=== PATIENT | female | born 2000 | race African-American/Black ===

== ENCOUNTER 2023-07-04 05:26 | Inpatient (IN) ==
[2023-07-04] MEDS ORDERED: OXYTOCIN 30 UNITS/NSS 30 UNITS/500 ML BAG IV PRN ×3 (05:36→09:20)
[2023-07-04] MEDS ORDERED: LIDOCAINE 1% LOCAL 20 ML VIAL INFIL PRN (05:36)
--- NOTE | 2023-07-04 05:42 | History & Physical Report ---
Date of Service July 04, 2023 Assessment & Plan (1) Encounter for supervision of normal in multigravida: Plan: IUP at 40 weeks presents in active labor requesting epidural analgesia anticipate vaginal delivery Admission and Anticipated Discharge Date Admission Date: July 04, 2023 History of Present Illness Primary Care Provider: Monet Lovett Hawa Patient is a 23 o female EDC07/[birth year]/23 who presents with regular ctns. No SPROM or bloody show. GBS-negative Allergies Allergy/AdvReac Type Severity Reaction Status Date / Time No Known Allergies Allergy Verified 07/04/23 05:36 Home Medications Medication Instructions Recorded Confirmed Type venlafaxine 50 mg tablet 50 mg PO DAILY 07/19/22 07/04/23 History vits no.124-ferrous fum 1 tab PO DAILY 07/04/23 07/04/23 History 27 mg iron-folic acid 800 mcg tablet ( Vitamin) Patient History Medical History Missed PTSD (post-traumatic stress disorder) from first delivery complications Depression with anxiety Asthma Chorioamnionitis Varicella vaccination Partial tear of left Achilles tendon Surgically repaired Surgical History S/P dilatation and curettage x2 S/P Achilles tendon repair H/O uvulectomy Hx of tonsillectomy Hx of LASIK Both eyes, release muscles when younger. Family History Grandfather (Maternal) Breast cancer Aunt Colorectal cancer Maternal Denies family history of Ovarian cancer Prostate cancer Myocardial infarction Social History Smoking Status: Never smoker Second Hand Exposure: No; Do You Dip or Chew Tobacco: No; Hx Alcohol Use: No (not during ) Hx Substance Use: No Preferred Language: Upper Sorbian Communication Ability: Effective Visual Impairment: No Limitations Scallop Cutter Required: No Beliefs That Will Affect Care: None marital status: Single marital status details: elisabet Singer (24) [phone] Current Living Situation: Family and Significant Other Current Living Situation Comment: lives with fob, daughter, cats-fob changing litter current occupational status: employed current occupation: [employer] specialist Feels Safe at Home: Yes Assistive Devices: None Review of Systems All systems reviewed & are unremarkable except as noted in HPI & below Physical Exam Constitutional: WD/WN, vitals as above Psychiatric: A+Ox3, euthymic affect Genitourinary: OB Exam Abdomen: + vertex and + regular contractions Manual OB Exam: + cervical dilation 5 cm, + cervical effacement 90% and + station -2 OB Exam Monitor Tracing: + external FHT monitor used, + external uterine monitor used and + normal FHT variability Code Status & VTE Plan VTE Prophylaxis Plan VTE Prophylaxis will be ordered: No Coding Level of Care Code None Diagnoses Encounter for supervision of normal in multigravida Z34.80
[2023-07-04] MEDS ORDERED: ePHEDrine sulfate 50 MG/ML AMP ONE (05:59)
[2023-07-04] MEDS: LACTATED RINGER'S 1,000 ML IV PRN (06:00)
--- NOTE | 2023-07-04 06:25 | Anesthesiology Consultation ---
Date of Service July 04, 2023 Assessment & Plan Chart Review Chart Review: Acceptable Risk for Labor Epidural Consults Requested none ASA ASA2 Proposed Anesthesia Anesthesia Type: Labor Epidural Risk / Benefits Reviewed With: PT / POA / Parent / Guardian, Accepts Plan and Informed Consent Obtained History Height/Weight Height: 5 ft 7 in Weight: 118.841 kg Allergies Allergy/AdvReac Type Severity Reaction Status Date / Time No Known Allergies Allergy Verified 07/04/23 05:36 Medications Home Medications Medication Instructions Recorded Confirmed Last Taken venlafaxine 50 mg tablet 50 mg PO DAILY 07/19/22 07/04/23 07/03/23 21:00 vits no.124-ferrous fum 1 tab PO DAILY 07/04/23 07/04/23 07/03/23 27 mg iron-folic acid 800 mcg tablet ( Vitamin) Past Medical History Medical History Missed PTSD (post-traumatic stress disorder) from first delivery complications Depression with anxiety Asthma Chorioamnionitis Varicella vaccination Partial tear of left Achilles tendon Surgically repaired Exercise / Class Metabolic Activity II 4-5 Yardwork/Stairs/Walk up hill Past Family History Family History Grandfather (Maternal) Breast cancer Aunt Colorectal cancer Maternal Denies family history of Ovarian cancer Prostate cancer Myocardial infarction Past Surgical History Surgical History S/P dilatation and curettage x2 S/P Achilles tendon repair H/O uvulectomy Hx of tonsillectomy Hx of LASIK Both eyes, release muscles when younger. Past Anesthesia History No Hx of Anesthesia Complications and No Family Hx of Anesthesia Complications History of PONV No Hx of PONV and No Hx of Motion Sickness Social History Smoking Status: Never smoker Do You Dip or Chew Tobacco: No Hx Alcohol Use: No (not during ) alcohol intake frequency: holidays/special occasions only Hx Substance Use: No substance use type: does not use Physical Exam Vital Signs Last Vital Signs Temp 98.2 F 07/04/23 05:37 Pulse 88 07/04/23 06:22 Resp 20 07/04/23 05:37 BP 133/67 07/04/23 06:18 Pulse Ox 91 07/04/23 06:22 ENMT Mouth: no dentition abnormality Thyromental Distance: > or= 3.5 Finger Breadths Mallampati Class: II Neck normal visual inspection Respiratory normal respiratory effort Auscultation: lungs clear to auscultation bilaterally Cardiovascular Rate/Rhythm: regular rate and regular rhythm
[2023-07-04 06:28] LABS: Hematocrit (blood only) 31.2 % (37.0-47.0); Hemoglobin 9.9 g/dl (12.0-16.0); Mean Corpuscular Hemoglobin 23.3 pg (25.0-34.0); Mean Corpuscular Hgb Conc 31.7 g/dL (32.0-36.0); Mean Corpuscular Volume 73.6 fL (80.0-100.0); Platelet Count 126 K/uL (130-400); RDW Coefficient of Variation 16.2 % (11.5-14.5); Red Blood Count 4.24 M/uL (4.20-5.40); White Blood Count 11.34 K/ul (4.8-10.8)
[2023-07-04] MEDS ORDERED: diphenhydrAMINE 50 MG/ML VIAL IV PRN (06:41)
[2023-07-04] MEDS ORDERED: fentaNYL citrate PF 100 MCG/2 ML VIAL EPI PRN (06:41)
[2023-07-04] MEDS ORDERED: ePHEDrine sulfate 50 MG/ML AMP IV PRN (06:41)
[2023-07-04] MEDS ORDERED: NALBUPHINE HCL 5 MG in SYRINGE 0 ML IV PRN (06:41)
[2023-07-04] MEDS ORDERED: LIDOCAINE 2% MPF LOCAL 5 ML VIAL EPI PRN (06:41)
[2023-07-04] MEDS ORDERED: SODIUM CHLORIDE 0.9% PF INJ 10 ML VIAL EPI PRN (06:41)
[2023-07-04] MEDS ORDERED: NALOXONE HCL 0.4 MG/1 ML VIAL/CARP IV PRN (06:41)
[2023-07-04] MEDS ORDERED: fentANYL 2 MCG/ML BUPIVacaine 0.125%-NSS 100ML BAG EPI PRN (06:41)
[2023-07-04] MEDS ORDERED: ONDANSETRON INJ 2 MG/ML 2 ML VIAL IV PRN (06:41)
[2023-07-04] MEDS ORDERED: LIDOCAINE 2%/EPINEPHRINE 1:200,000 20 ML PF EPI STA (06:41)
[2023-07-04] MEDS ORDERED: NALOXONE HCL 1 MG in SODIUM CHLORIDE 0.9% 1,000 ML IV PRN (06:41)
[2023-07-04] MEDS ORDERED: BUPIVACAINE 0.25% PF 30 ML VIAL EPI STA (06:41)
[2023-07-04] MEDS ORDERED: BUPIVACAINE 0.25% PF 30 ML VIAL EPI PRN (06:41)
[2023-07-04] MEDS ORDERED: ROPIVACAINE 0.5% PF 5 MG/ML 20 ML VIAL EPI PRN (06:41)
[2023-07-04] MEDS ORDERED: fentaNYL citrate PF 100 MCG/2 ML VIAL EPI STA (06:41)
[2023-07-04] MEDS ORDERED: SODIUM CHLORIDE 0.9% PF INJ 10 ML VIAL EPI STA (06:41)
[2023-07-04] MEDS: fentANYL 2 MCG/ML BUPIVacaine 0.125%-NSS 100ML BAG ONE (06:42)
[2023-07-04] MEDS: LIDOCAINE 2%/EPINEPHRINE 1:200,000 20 ML PF ONE (06:42)
[2023-07-04] MEDS: BUPIVACAINE 0.25% PF 30 ML VIAL ONE (06:42)
[2023-07-04] MEDS: fentaNYL citrate PF 100 MCG/2 ML VIAL ONE (07:00)
[2023-07-04] MEDS: SODIUM CHLORIDE 0.9% PF INJ 10 ML VIAL ONE (07:00)
[2023-07-04] MEDS: CALCIUM CARBONATE 500 MG CHEWABLE TAB PO ONE (07:06)
[2023-07-04] MEDS ORDERED: VENLAFAXINE HCL 50 MG TAB PO SCH (09:00)
--- NOTE | 2023-07-04 09:18 | Delivery Summary ---
Vaginal Delivery Summary Date of Service July 04, 2023 Vaginal Delivery Summary Spontaneous vaginal delivery the patient had been scheduled for induction today but actually arrived in labor for Dr. Vincent earlier she had requested epidural and soon afterwards was fully dilated pushed over several contractions a baby in occiput anterior position was a loose nuchal cord that was passed over the head gentle traction on the baby no excessive force easy delivery live vigorous female Cord clamped and cut cord blood obtained placenta removed with traction IV Pitocin started there is a small abrasion on the vulva that was repaired with a [id number] simply because of bleeding otherwise no tearing quantitative blood loss was approximately 50 mL sponge and instrument counts correct [facility] Vaginal Delivery Charge Delivery Type Details:
[2023-07-04] MEDS ORDERED: bisacodyL 10 MG SUPP PR PRN (09:20)
[2023-07-04] MEDS ORDERED: HYDROCORTISONE ACETATE 25 MG SUPP PR PRN (09:20)
[2023-07-04] MEDS ORDERED: DIPHTHER/TETAN/PERTUS Vaccine (Tdap, Adol/Adult) 0.5mL IM ONE (09:20)
--- NOTE | 2023-07-04 10:05 | Anesthesia Procedure Note ---
Date of Service July 04, 2023 Anesthesia Post Epidural Note Vital Signs Vital Signs: Temp Pulse Resp BP Pulse Ox 98.1 F 73 16 127/66 99 07/04/23 09:30 07/04/23 09:51 07/04/23 09:45 07/04/23 09:51 07/04/23 08:57 Pain Intensity Right Abdomen: Pain Intensity: 3 Notes Mental Status: alert / awake / arousable and participated in evaluation Nausea / Vomiting: adequately controlled Pain: adequately controlled Airway Patency, RR, SpO2: stable & adequate BP & HR: stable & adequate Hydration State: stable & adequate Neuraxial Anesthesia: was administered and sensory block is resolving Anesthetic Complications: no major complications apparent and Pt Satisfied with anesthetic care Epidural: Removed without complications and With tip intact
[2023-07-04] MEDS: BENZOCAINE 20% SPRY 85 APPLN/85 GM CAN EXT PRN (10:49)
[2023-07-04] MEDS: IBUPROFEN 600 MG TAB PO PRN (10:49)
[2023-07-04] MEDS: ACETAMINOPHEN 325 MG TAB PO PRN (12:31)
[2023-07-04] MEDS: oxyCODONE HCL IR 5 MG TAB (IMMEDIATE RELEASE) PO PRN (16:29)
[2023-07-04] MEDS: DOCUSATE SODIUM 100 MG CAP PO SCH (20:30)
[2023-07-04] MEDS: VENLAFAXINE HCL 50 MG TAB PO SCH (20:31)
[2023-07-05 06:09] LABS: Hematocrit (blood only) 27.6 % (37.0-47.0); Hemoglobin 8.8 g/dl (12.0-16.0); Mean Corpuscular Hemoglobin 23.4 pg (25.0-34.0); Mean Corpuscular Hgb Conc 31.9 g/dL (32.0-36.0); Mean Corpuscular Volume 73.4 fL (80.0-100.0); Mean Platelet Volume 12.4 fL (9.4-12.4); Platelet Count 102 K/uL (130-400); RDW Coefficient of Variation 16.1 % (11.5-14.5); RDW Standard Deviation 41.6 fL (36.4-46.3); Red Blood Count 3.76 M/uL (4.20-5.40); White Blood Count 11.44 K/ul (4.8-10.8)
--- NOTE | 2023-07-05 06:43 | Obstetrical Progress Note ---
Date of Service July 05, 2023 Assessment & Plan (1) care and examination: Plan Doing well Anticipate dc today if cleared by peds Cont routine post care Admission and Anticipated Discharge Date Admission Date: July 04, 2023 Supervising Physician Co-Signing Physician Notes Resident Physician Supervision Note: I interviewed and examined the patient. Discussed with Dr. Dueñas and agree with findings and plan as documented in the note. Any exceptions or clarifications are listed here: [None] Documented By: Nikia Benito MD, FACOG Subjective 23 yo post day 1 s/p Ambulation: ambulating normally Voiding: no voiding problems Passing Gas:: Yes Diet Tolerance:: regular diet Lochia:: Small Current Pain Level: minimal Resting comfortably this AM in NAD. Denies GROVES, CP, SOB, N/V/D, LE pain/swelling. Desires dc today Review of Systems Review of Systems: reviewed, per HPI Physical Exam Physical Exam: General: patient resting comfortably, NAD, non-toxic in appearance Skin: warm, dry, intact HEENT: NC/AT, anicteric sclera, conjunctiva without injection, moist mucus membranes. Heart: +S1/S2, regular, no m/r/g Lungs: equal air entry bilaterally, no rales/rhonchi/wheezes Abd: +BS, soft, NT/ND, uterine fundus firm at umbilicus Ext: warm, no clubbing/cyanosis or edema, Michael's neg. Neuro: nonfocal, speech intact, no facial droop, moving all extremities Results & Data Vital Signs (Past 12 Hours) Vital Signs Temp Pulse Resp BP Pulse Ox O2 Del Method 07/04/23 23:25 36.7 C 74 18 122/79 97 Room Air 07/04/23 20:25 36.4 C L 87 18 120/79 98 Room Air Resident Activity Tracking Resident Involvement: Resident Care Provided Care Provided: Adult Hospital Medicine
[2023-07-05] MEDS: PRENATAL VITAMIN 1 TAB PO SCH (07:29)
[2023-07-05] MEDS ORDERED: bisacodyL 5 MG TABEC PO SCH (20:00)
== END 2023-07-05 11:55 | disposition home or self-care (01) | DRG 807 ==
LOC: 4S1 05:26 → 4E2 11:43

== ENCOUNTER 2024-04-30 15:31 | Observation (INO) ==
--- NOTE | 2024-04-30 16:32 | Emergency Department Note ---
Impression & Plan Abscess of breast, left, Leukocytosis, Cellulitis of left breast, Breast pain, left ED Provider Note CHIEF COMPLAINT: Cellulitis in left breast, infection spreading HISTORY OF PRESENTING ILLNESS: The patient is a 24-year-old female who reports to the emergency department due to cellulitis in her left breast. She confirms that she is not breast-feeding. She states that she first noticed the redness on her breast on Sunday. She was seen by her OB on Sunday and was given Bactrim. Reports that the redness is beginning to spread and there is swelling. Confirms that there was some drainage in the shower yesterday. She is now feeling the pain up into her armpit. Denies fevers, abdominal pain, chest pain, shortness of breath, all other ROS. REVIEW OF SYSTEMS: See HPI for pertinent positives and pertinent negatives. ALLERGIES: NKDA MEDICATIONS: See below PAST MEDICAL HISTORY: See below PHYSICAL EXAM: VITALS: Vitals are noted on the nurse's note and reviewed by myself. Vital signs stable. GENERAL: 24-year-old female, sitting comfortably in the chair, appearing in discomfort, in no acute distress, nondiaphoretic, well-developed well-nourished. SKIN: Capillary refill less than 2 seconds. HEENT: Normocephalic. PERRLA. EOMI. Nares patent. Mucous membranes moist. Neck is supple without nuchal rigidity. HEART: Regular rate and rhythm without murmurs gallops or rubs. BREAST: Left breast with skin marker surrounding a 6 to 7 cm area of periareolar redness. Patient confirms that the gabriele was placed earlier that week. The redness is moving outside of the skin marker area. Fluctuance palpated in the periareolar region. Exquisite tenderness to palpation. Nipple appears to be swollen and there is an area that seems to have been expressing drainage before. No redness appreciated in the left underarm. LUNGS: Clear to auscultation bilaterally without wheezes, rales or rhonchi. No retractions or accessory muscle use. ABDOMEN: Positive bowel sounds x 4. Soft, nontender, without masses or organomegaly.No guarding or rebound tenderness. NEURO: Patient was alert and oriented No focal neurological deficits. DIFFERENTIAL DIAGNOSIS: Cellulitis, mastitis, abscess, fungal infection, eczema, dermatitis, psoriasis, inflammatory breast cancer, Paget's disease, allergic reaction, chafing or friction, among others. ED COURSE AND MEDICAL DECISION MAKING: HISTORY FROM INDEPENDENT HISTORIAN: The patient herself and her partner. MEDICATIONS GIVEN: Toradol 15 mg IV, Percocet PO, Rocephin 2 g IV INTERPRETATION OF LABS: I interpreted the labs with full lab results as below in the lab section of this note. Pertinent lab results discussed in the MDM section below. INTERPRETATION OF IMAGING: Imaging studies were interpreted by myself and read by radiology as per the imaging section of this note. CT chest with contrast -mild periareolar skin thickening. Possible retroareolar fluid collection which could suggest abscess. Mildly prominent left axillary lymph node likely reactive. Breast ultrasound suggested. CONSULTATIONS: [facility] general surgery - Dr. Conner Becker had a discussion with general surgery regarding the patient's presentation. Due to the patient's periareolar abscess and involvement of the nipple. Dr. Prieto stated that if the patient would tolerate a bedside needle aspiration that that could be performed with appropriate pain management. I did discuss the patient's presentation as well as feeling Bactrim for 3 days and we discussed admitting the patient for IV antibiotics. She stated that if the patient does not tolerate the bedside aspiration that she would do a drainage in the OR tomorrow. I had a discussion with the patient in which she politely declined bedside aspiration and preferred admission for antibiotics and OR drainage. [facility] hospitalist - Dr. Patsy Elmore -[place] presented the patient to Dr. Elmore and we discussed my consultation with general surgery. She agrees to admitting the patient and would evaluate her. [facility] SUMMARY: The patient is a 24-year-old female who reports to the emergency department due to cellulitis in her left breast. She confirms that she is not breast-feeding. She states that she first noticed the redness on her breast on Sunday where she was evaluated by OB and started on Bactrim. She completed 3 days of Bactrim and noticed significant spreading outside of her skin marker that was placed in the periareolar area of cellulitis. She reports drainage from the area last night. She is now feeling the pain up in her left armpit area. Denies fevers, abdominal pain, chest pain, shortness of breath, all other ROS. On physical exam she is sitting comfortably in the chair but she can tell she is in obvious discomfort. Her vitals are stable and she is afebrile. We discussed that she needs an ultrasound to rule out abscess in which she politely declined and stated that she is so tender that she does not want to have an ultrasound or anyone pressing on her breast. We discussed a CT scan of the chest in which she confirmed she wants that instead. IV Toradol was given for pain management. Patient requested a Percocet and stated that she was given this for pain management of the breast from her OB but did not take it today. A dose of Percocet was given. CBC, CMP, procalcitonin were ordered upon triage. Leukocytosis WBC elevated 11.17. RBC normal 4.79. No electrolyte abnormalities noted. BUN normal 7. Creatinine normal 0.58. Procalcitonin normal 0.03. CT scan of the chest shows mild periareolar skin thickening. Possible retroareolar fluid collection suggesting abscess. Mildly prominent left axillary lymph nodes likely reactive. I had a discussion with the patient regarding drainage in which she openly discussed preferring, "being knocked out" for it. I consulted with general surgery due to the location of the cellulitis and abscess. This can be seen in detail above. The patient ultimately decided that she would prefer the drainage to be done in the OR. Patient was given first dose of Rocephin 2 g in the emergency department. She was admitted to the hospitalist team after my discussion with Dr. Prieto. She will be monitored overnight for pain management, IV antibiotics, and drainage in the OR tomorrow by the general surgery team. The patient agreed to this plan and was able to ask questions. The patient was admitted in stable condition. DIAGNOSIS: Abscess of left breast, leukocytosis, cellulitis of left breast, left breast pain The chart was completed utilizing [email or web address] Speech voice recognition software. Grammatical errors, random word insertions, pronoun errors, and incomplete sentences are an occasional consequence of this system due to software limitations, ambient noise, and hardware issues. Any formal questions or concerns about the content, text, or information contained within the body of this dictation should be directly addressed to the provider for clarification. Past Med/Surg History Problem List (Updated 04/30/24 @ 21:44 by Rowena Marshall PA-C) Breast pain, left (Acute) Cellulitis of left breast (Acute) Leukocytosis (Acute) Abscess of breast, left (Acute) Cellulitis of left breast Left breast abscess Vaginismus (not due to a general medical condition) Vaginal discharge Oligomenorrhea care and examination Non-reactive NST (non-stress test) Vaginal bleeding during , antepartum with 37 weeks completed gestation Abdominal pain affecting Obesity affecting Sickle cell trait Prior miscarriage with , antepartum Bleeding in early Leukocytosis (Acute) Medical History Encounter for supervision of normal in multigravida Missed PTSD (post-traumatic stress disorder) from first delivery complications Depression with anxiety Asthma Chorioamnionitis Varicella vaccination Partial tear of left Achilles tendon Surgically repaired Surgical History S/P dilatation and curettage x2 S/P Achilles tendon repair H/O uvulectomy Hx of tonsillectomy Hx of LASIK Both eyes, release muscles when younger. Family History Grandfather (Maternal) Breast cancer Aunt Colorectal cancer Maternal Denies family history of Ovarian cancer Prostate cancer Myocardial infarction Social History Smoking Status: Never smoker Second Hand Exposure: No; Do You Dip or Chew Tobacco: No; Hx Alcohol Use: No (not during ) Hx Substance Use: No Preferred Language: Italian Communication Ability: Effective Visual Impairment: No Limitations Ticket Collector Required: No Beliefs That Will Affect Care: None marital status: Single marital status details: elisabet Singer (24) [phone] Current Living Situation: Significant Other Current Living Situation Comment: [place] current occupational status: employed current occupation: [employer] specialist Feels Safe at Home: Yes Assistive Devices: None Allergies Allergies Allergy/AdvReac Type Severity Reaction Status Date / Time No Known Allergies Allergy Verified 04/28/24 15:03 Home Meds Home Medications Medication Instructions Recorded Confirmed venlafaxine 50 mg tablet 100 mg PO HS 07/19/22 04/30/24 celecoxib 200 mg capsule 200 mg PO HS 04/28/24 04/30/24 gabapentin 300 mg capsule 300 mg PO HS 04/28/24 04/30/24 Previous Rx's Medication Instructions Recorded fluconazole 150 mg tablet 150 mg PO Q4D 2 doses #2 tabs 07/20/23 oxycodone-acetaminophen 5 mg-325 1 tab PO Q4H PRN pain #10 tabs 04/28/24 mg tablet (Percocet) sulfamethoxazole 800 1 tab PO Q12H 10 days #20 tabs 04/28/24 mg-trimethoprim 160 mg tablet Results & Data (ED) Vital Signs Vital Signs - 24 hr 04/30/24 15:49 04/30/24 19:00 04/30/24 21:00 Temperature 36.6 C Temperature Source Skin Pulse Rate 96 H Pulse Rate [Finger] 78 72 Pulse Rhythm [Finger] Regular Pulse Strength [Finger] Normal Respiratory Rate 19 18 18 Respiratory Effort / Characteristics Non-Labored Spontaneous Non-Labored Non-Labored Spontaneous Respiratory Depth Normal Normal Normal Respiratory Pattern Regular Regular Regular Blood Pressure 125/86 Blood Pressure [Right Arm] 133/83 131/72 Blood Pressure Mean 99 Blood Pressure Mean [Right Arm] 99 91 Blood Pressure Position [Right Arm] Lying Pulse Oximetry 97 97 98 Oxygen Delivery Method Room Air Room Air Room Air Sepsis Recent Fever Within 48 Hours No Sepsis New/Unexplained Change in Mental Status No Sepsis Action Taken by Nursing No Action Required Laboratory Data 04/30/24 16:28 04/30/24 16:28 Lab Results 04/30/24 Range/Units 16:28 WBC 11.17 H (4.8-10.8) K/ul RBC 4.79 (4.20-5.40) M/uL Hgb 12.9 (12.0-16.0) g/dl Hct 37.5 (37.0-47.0) % MCV 78.3 L (80.0-100.0) fL MCH 26.9 (25.0-34.0) pg MCHC 34.4 (32.0-36.0) g/dL RDW Std Deviation 39.0 (36.4-46.3) fL RDW Coeff of Randall 13.5 (11.5-14.5) % Plt Count 159 (130-400) K/uL MPV 12.1 (9.4-12.4) fL Immature Gran % (Auto) 0.3 % Neut % (Auto) 70.8 % Lymph % (Auto) 19.5 % Mckinley % (Auto) 7.3 % Eos % (Auto) 1.7 % Baso % (Auto) 0.4 % Neut # (Auto) 7.92 H (1.40-6.50) K/uL Lymph # (Auto) 2.18 (1.20-3.40) K/uL Mckinley # (Auto) 0.81 H (0.11-0.59) K/uL Eos # (Auto) 0.19 (0.00-0.50) K/uL Baso # (Auto) 0.04 (0.00-0.20) K/uL Immature Gran # (Auto) 0.03 (0.01-0.20) K/uL PT 10.5 (9.0-12.0) Seconds INR 1.0 (0.9-1.1) APTT 31 (21-31) Seconds PTT Ratio 1.2 Sodium 136 (136-145) mmol/L Potassium 4.0 (3.5-5.1) mmol/L Chloride 105 (98-107) mmol/L Carbon Dioxide 25 (21-32) mmol/L Anion Gap 6 (3-11) BUN 7 (6-23) mg/dl Creatinine 0.58 L (0.6-1.2) mg/dl Est Cr Clr Drug Dosing 189.1 ml/min eGFR 129.52 BUN/Creatinine Ratio 12.1 (10-20) Glucose 81 (70-99(Fasting)) mg/dl Calcium 9.1 (8.6-10.3) mg/dl Magnesium 1.9 (1.7-2.4) mg/dl Total Bilirubin 0.7 (0.2-1.0) mg/dl AST 12 L (13-39) U/L ALT 17 (7-52) U/L Alkaline Phosphatase 83 (34-104) U/L Troponin I High Sens 2.7 (0-14) pg/ml Total Protein 7.3 (6.0-8.3) gm/dl Albumin 4.3 (3.4-5.0) gm/dl Globulin 3.0 (2.5-4.0) gm/dl Albumin/Globulin Ratio 1.4 (0.9-2) Procalcitonin 0.03 (0-0.5) ng/ml Administered Medications Vancomycin HCl 2,250 mg/ (Sodium Chloride) 545 mls @ 200 mls/hr IV NOW ONE Stop: 04/30/24 23:28 Last Admin: 04/30/24 21:09 Dose: 200 mls/hr Documented By: GENIE Oxycodone/Acetaminophen (Oxycodone/Acetaminophen 5mg/325mg Tab) 2 tab PO Q4H PRN PRN Reason: SEVERE Pain (7,8,9,10) Stop: 05/14/24 20:06 Last Admin: 04/30/24 20:39 Dose: 2 tab Documented By: YOVANI Discontinued Medications Ceftriaxone Sodium (Rocephin) 2,000 mg in 50 mls @ 100 mls/hr IV NOW STA Stop: 04/30/24 18:24 Last Infusion: 04/30/24 18:42 Dose: Infused Documented By: Admin: 04/30/24 18:12 Dose: 100 mls/hr Documented By: NATHALIA Ioversol (Optiray 320 100ml) 90 ml IV ONCE ONE Stop: 04/30/24 17:57 Last Admin: 04/30/24 17:56 Dose: 90 ml Documented By: CANDY Ketorolac Tromethamine (Ketorolac Tromethamine 15 Mg/Ml Vial) 15 mg IV NOW STA Stop: 04/30/24 15:57 Last Admin: 04/30/24 17:31 Dose: 15 mg Documented By: KIKA Morphine Sulfate (Morphine Sulfate 4 Mg/Ml 1 Ml Carp\\Vial) 4 mg IV ONE ONE Stop: 04/30/24 21:02 Last Admin: 04/30/24 21:26 Dose: 4 mg Documented By: YOVAIN Oxycodone/Acetaminophen (Oxycodone/Acetaminophen 5mg/325mg Tab) 1 tab PO NOW STA Stop: 04/30/24 17:25 Last Admin: 04/30/24 17:34 Dose: 1 tab Documented By: KIKA Imaging Data Radiologist's Impression: Chest CT 04/30/24 17:24 EXAMINATION: Chest CT with CLINICAL HISTORY: Left breast cellulitis. Has been seen by ELECTRONIC ENGRAVER. Patient reports has spread to left axilla. PRIORS: None TECHNIQUE: Contiguous axial images were obtained through the chest with the use of intravenous contrast. Sagittal and coronal reformations are supplied. FINDINGS: The patient is positioned to optimize visualization of the left breast. The right breast nipple areolar complex is not fully within the [id number]. Allowing for this, mild left periareolar skin thickening is noted. Dense retroareolar breast tissue is present versus a small fluid collection or abscess, image 113, image 4, measuring 15 mm. This is lower attenuation than the surrounding fibroglandular tissue. No subcutaneous gas or radiopaque foreign body. No axillary skin thickening. Infra mammary fold is unremarkable. Mildly prominent left axillary lymph node is present on image 11, series 2 measuring 9 mm in short axis. The chest is well-expanded. No pulmonary nodule or mass. No pleural or pericardial effusion. Heart size is normal. Trachea and mainstem bronchi patent. Limited visualization of the upper abdomen is unremarkable. Osseous structures unremarkable. IMPRESSION: Mild periareolar skin thickening, allowing for CT technique, with possible retroareolar fluid collection which could suggest an abscess. Mildly prominent left axillary lymph node likely reactive. Dedicated breast ultrasound is suggested. ACT 112: Positive. There are findings on this examination that require communication between the performing entity and the patient following Patient Test Result Information Act ([place] ACT 112) guidelines. Electronically signed by Prudence Nazario 04-30-2024 6:26 PM Discharge Plan Visit Data Chief Complaint: Skin Problem Stated Complaint: CELLULITIS IN LT BREAST, INFECTION SPREADING ED Provider: [facility] Midlevel Provider: Rowena Marshall Discharge Problem: Abscess of breast, left, Leukocytosis, Cellulitis of left breast, Breast pain, left Patient Disposition: Admitted As Inpatient Condition: Good Forms Stand Alone Forms: [facility] [employer] Prescriptions Prescriptions: No Action fluconazole 150 mg tablet 150 mg PO Q4D 0 Days Qty: 2 0RF Rx Instructions: Take one now, repeat in 4 days if symptoms persist. celecoxib 200 mg capsule 200 mg PO HS gabapentin 300 mg capsule 300 mg PO HS sulfamethoxazole-trimethoprim 800-160 mg tablet 1 tab PO Q12H 10 Days Qty: 20 0RF oxycodone-acetaminophen [Percocet] 5-325 mg tablet 1 tab PO Q4H PRN (Reason: pain) Qty: 10 0RF venlafaxine 50 mg tablet 100 mg PO HS Referrals Referrals: PCP,NO [Primary Care Provider] - Discharge Problem: Leukocytosis Qualifiers: Leukocytosis type: unspecified Qualified Code(s): D72.829 - Elevated white blood cell count, unspecified
[2024-04-30 16:44] LABS: Basophils # (auto) 0.04 K/uL (0.00-0.20); Basophils % (auto) 0.4 %; Eosinophils # (auto) 0.19 K/uL (0.00-0.50); Eosinophils % (auto) 1.7 %; Hematocrit (blood only) 37.5 % (37.0-47.0); Hemoglobin 12.9 g/dl (12.0-16.0); Immature Granulocytes # (auto) 0.03 K/uL (0.01-0.20); Immature Granulocytes % (auto) 0.3 %; Lymphocytes # (auto) 2.18 K/uL (1.20-3.40); Lymphocytes % (auto) 19.5 %; Mean Corpuscular Hemoglobin 26.9 pg (25.0-34.0); Mean Corpuscular Hgb Conc 34.4 g/dL (32.0-36.0); Mean Corpuscular Volume 78.3 fL (80.0-100.0); Mean Platelet Volume 12.1 fL (9.4-12.4); Monocytes # (auto) 0.81 K/uL (0.11-0.59); Monocytes % (auto) 7.3 %; Neutrophils # (auto) 7.92 K/uL (1.40-6.50); Neutrophils % (auto) 70.8 %; Platelet Count 159 K/uL (130-400); RDW Coefficient of Variation 13.5 % (11.5-14.5); Red Blood Count 4.79 M/uL (4.20-5.40); White Blood Count 11.17 K/ul (4.8-10.8)
[2024-04-30 17:00] LABS: Albumin Globulin Ratio 1.4 (0.9-2); Albumin Level 4.3 gm/dl (3.4-5.0); BUN Creatinine Ratio 12.1 (10-20); Bilirubin,Total 0.7 mg/dl (0.2-1.0); Calcium 9.1 mg/dl (8.6-10.3); Creatinine Clr Calc Pharmacy 189.1 ml/min; Magnesium 1.9 mg/dl (1.7-2.4); Total Protein 7.3 gm/dl (6.0-8.3)
[2024-04-30 17:06] LABS: Troponin I High Sensitivity 2.7 pg/ml (0-14)
[2024-04-30 17:11] LABS: Partial Thromboplastin Ratio 1.2; Partial Thromboplastin Time 31 Seconds (21-31); Prothrombin Time 10.5 Seconds (9.0-12.0)
[2024-04-30] MEDS: KETOROLAC TROMETHAMINE 15 MG/ML VIAL IV STA (17:31)
[2024-04-30] MEDS: oxyCODONE/ACETAMINOPHEN 5mg/325mg TAB PO STA (17:34)
[2024-04-30] MEDS: OPTIRAY 320 100ml IV ONE (17:56)
[2024-04-30] MEDS: cefTRIAXone SODIUM 2,000 MG/50 ML BAG IV STA (18:12)
--- NOTE | 2024-04-30 18:26 | CT Scan Report ---
EXAMINATION: Chest CT with CLINICAL HISTORY: Left breast cellulitis. 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 Patient reports has spread to left axilla. PRIORS: None TECHNIQUE: Contiguous axial images were obtained through the chest with the use of intravenous contrast. Sagittal and coronal reformations are supplied. FINDINGS: The patient is positioned to optimize visualization of the left breast. The right breast nipple areolar complex is not fully within the [id number]. Allowing for this, mild left periareolar skin thickening is noted. Dense retroareolar breast tissue is present versus a small fluid collection or abscess, image 113, image 4, measuring 15 mm. This is lower attenuation than the surrounding fibroglandular tissue. No subcutaneous gas or radiopaque foreign body. No axillary skin thickening. Infra mammary fold is unremarkable. Mildly prominent left axillary lymph node is present on image 11, series 2 measuring 9 mm in short axis. The chest is well-expanded. No pulmonary nodule or mass. No pleural or pericardial effusion. Heart size is normal. Trachea and mainstem bronchi patent. Limited visualization of the upper abdomen is unremarkable. Osseous structures unremarkable. IMPRESSION: Mild periareolar skin thickening, allowing for CT technique, with possible retroareolar fluid collection which could suggest an abscess. Mildly prominent left axillary lymph node likely reactive. Dedicated breast ultrasound is suggested. ACT 112: Positive. There are findings on this examination that require communication between the performing entity and the patient following Patient Test Result Information Act ([place] ACT 112) guidelines. Electronically signed by Prudence Nazario 04-30-2024 6:26 PM
--- NOTE | 2024-04-30 19:28 | History & Physical Report ---
Date of Service April 30, 2024 Assessment & Plan (1) Left breast abscess: (2) Cellulitis of left breast: Plan 24-year-old F PMHx sickle cell trait, PTSD, depression with anxiety, and asthma who presents for L breast cellulitis. States that the skin change started 2 days LAUNDRY AIDE with redness and swelling, with one spot that was draining. Was seen by PCP and was started on Bactrim. ED evaluation reveals CBC with WBC 11.17, CMP grossly WNL with exception Cr 0.58, AST 12. Pt refused US of breast given significant pain with any touch, so CT of chest was completed revealing large area with skin thickening with retroareolar fluid collection suggestive of abscess, mildly prominent L axillary lymph node likely reactive. Provided with oxycodone/acetaminophen, ketorolac, and Rocephin 2 g in ED. #L breast cellulitis/abscess Not currently breast-feeding, no known trauma to the area or breaks in the skin. Did have drainage for "1 drop", yellow in nature then discontinued. Prescribed Bactrim as outpatient. - CBC with leukocytosis 11.17, CMP grossly WNL with exception of creatinine 0.58 and AST 12; obtain culture if drainage from site; CBC am - Patient refused ultrasound of L breast given significant pain with palpation; CT chest with large area of skin thickening and retroareolar fluid collection suggestive of abscess, mildly prominent L axillary lymph nodes - L breast US pending, may utilize morphine PRIOR to testing - Vancomycin for MRSA coverage - Surgical consult placed- plans for surgical intervention 05/01/2024; appreciate input and recs - Patient states that she often will get yeast infections following antibiotic use- Fluconazole ordered if needed #Anxiety and depression- Venlafaxine Dispo: Admit, med/sx VTE prophylaxis: SCDs This document was dictated utilizing [employer]ened[employer]. Please excuse any grammatical errors that may be secondary to use of this software. Admission and Anticipated Discharge Date Admission Date: 04/30/2024 History of Present Illness Chief Complaint: Breast pain, skin abnormality Primary Care Provider: NO PCP 24-year-old F PMHx sickle cell trait, PTSD, depression with anxiety, and asthma who presents for L breast cellulitis. States that the skin change started 2 days LAUNDRY AIDE with redness and swelling, with one spot that was draining. Was seen by PCP and was started on Bactrim. Reports that on the day of arrival, the redness and edema was spreading outside of the previously marked area and was causing her more significant pain. Spreading upward, into armpit. Describes pain as sharp and stabbing in nature, most severe at nipple with radiating pain up to armpit and the surrounding rib area. Most recent temperature was 99.0 Fahrenheit. Not currently . States that she has never had this happen before. Does feel as though she is having some tingling in her left armpit and arm. Denies chest pain, shortness of breath, palpitations, abdominal pain, N/V/D/C, or LUTS. Has been taking Percocet for pain as prescribed by outpatient provider. ED evaluation reveals CBC with WBC 11.17, CMP grossly WNL with exception Cr 0.58, AST 12. Pt refused US of breast given significant pain with any touch, so CT of chest was completed revealing large area with skin thicke navin with retroareolar fluid collection suggestive of abscess, mildly prominent L axillary lymph node likely reactive. Provided with oxycodone/acetaminophen, ketorolac, and Rocephin 2 g in ED. Please see Dr. Elmore's attestation for adjustments/additions to treatment plan. Allergies Allergy/AdvReac Type Severity Reaction Status Date / Time No Known Allergies Allergy Verified 04/28/24 15:03 Home Medications Medication Instructions Recorded Confirmed Type venlafaxine 50 mg tablet 100 mg PO HS 07/19/22 04/30/24 History fluconazole 150 mg tablet 150 mg PO Q4D 2 doses #2 tabs 07/20/23 04/30/24 Rx celecoxib 200 mg capsule 200 mg PO HS 04/28/24 04/30/24 History gabapentin 300 mg capsule 300 mg PO HS 04/28/24 04/30/24 History oxycodone-acetaminophen 5 mg-325 1 tab PO Q4H PRN pain #10 tabs 04/28/24 04/30/24 Rx mg tablet (Percocet) sulfamethoxazole 800 1 tab PO Q12H 10 days #20 tabs 04/28/24 04/30/24 Rx mg-trimethoprim 160 mg tablet Past Med/Surg History Problem List Breast pain, left (Acute) Cellulitis of left breast (Acute) Leukocytosis (Acute) Abscess of breast, left (Acute) Cellulitis of left breast Left breast abscess Vaginismus (not due to a general medical condition) Vaginal discharge Oligomenorrhea care and examination Non-reactive NST (non-stress test) Vaginal bleeding during , antepartum with 37 weeks completed gestation Abdominal pain affecting Obesity affecting Sickle cell trait Prior miscarriage with , antepartum Bleeding in early Leukocytosis (Acute) Medical History Encounter for supervision of normal in multigravida Missed PTSD (post-traumatic stress disorder) from first delivery complications Depression with anxiety Asthma Chorioamnionitis Varicella vaccination Partial tear of left Achilles tendon Surgically repaired Surgical History S/P dilatation and curettage x2 S/P Achilles tendon repair H/O uvulectomy Hx of tonsillectomy Hx of LASIK Both eyes, release muscles when younger. Family History Grandfather (Maternal) Breast cancer Aunt Colorectal cancer Maternal Denies family history of Ovarian cancer Prostate cancer Myocardial infarction Social History Smoking Status: Never smoker Second Hand Exposure: No; Do You Dip or Chew Tobacco: No; Hx Alcohol Use: Yes Hx Substance Use: No Preferred Language: Czech Communication Ability: Effective Visual Impairment: No Limitations Acid Loader Required: No Beliefs That Will Affect Care: None marital status: Single marital status details: elisabet Singer (24) [phone] Current Living Situation: Significant Other Current Living Situation Comment: Markus current occupational status: employed current occupation: [employer] specialist Feels Safe at Home: Yes Assistive Devices: None Review of Systems Review of Systems: All systems reviewed & are unremarkable except as noted in Subjective Physical Exam Physical Exam: General: No acute distress Skin: Warm and dry; L breast with erythema and edema surrounding L areola, warmth and mild edema. Significant tenderness to palpation. No open areas, no drainage; erythematous area at 2 o'clock position L breast. Head: Normocephalic, atraumatic Eyes: PERRL, conjunctivae clear, sclera non-icteric; EOM intact ENT: External ear and ear canal without swelling; nose atraumatic; good dentition, tongue normal appearance, pharynx normal Neck: Supple, no LAD Cardio: RRR, no M/G/R, S1 and S2 normal Resp: No respiratory distress, Lungs CTA in all lobes bilaterally, no wheezes, rales, or rhonchi Abdomen: Soft, symmetric, nontender; No masses or hepatosplenomegaly; Bowel sounds normoactive MSK: No deformities, full ROM throughout; pulses palpable and equal; no edema. Neuro: Awake, alert; CN intact Psych: Appropriate mood and affect; good judgement and insight. Male partner present in room at time of visit. Results & Data Results & Data Vital Signs (Past 12 Hours) Vital Signs Temp Pulse Pulse Resp BP BP Pulse Ox 04/30/24 19:00 78 18 133/83 97 04/30/24 15:49 36.6 C 96 H 19 125/86 97 O2 Del Method 04/30/24 19:00 Room Air 04/30/24 15:49 Room Air Laboratory Results 04/30/24 16:28 WBC 11.17 H RBC 4.79 Hgb 12.9 Hct 37.5 MCV 78.3 L MCH 26.9 MCHC 34.4 RDW Std Deviation 39.0 RDW Coeff of Randall 13.5 Plt Count 159 MPV 12.1 Immature Gran % (Auto) 0.3 Neut % (Auto) 70.8 Lymph % (Auto) 19.5 [place] % (Auto) 7.3 Eos % (Auto) 1.7 Baso % (Auto) 0.4 Neut # (Auto) 7.92 H Lymph # (Auto) 2.18 [place] # (Auto) 0.81 H Eos # (Auto) 0.19 Baso # (Auto) 0.04 Immature Gran # (Auto) 0.03 PT 10.5 INR 1.0 APTT 31 PTT Ratio 1.2 Sodium 136 Potassium 4.0 Chloride 105 Carbon Dioxide 25 Anion Gap 6 BUN 7 Creatinine 0.58 L Est Cr Clr Drug Dosing 189.1 eGFR 129.52 BUN/Creatinine Ratio 12.1 Glucose 81 Calcium 9.1 Magnesium 1.9 Total Bilirubin 0.7 AST 12 L ALT 17 Alkaline Phosphatase 83 Troponin I High Sens 2.7 Total Protein 7.3 Albumin 4.3 Globulin 3.0 Albumin/Globulin Ratio 1.4 Procalcitonin 0.[address] 04/30/24 17:24 EXAMINATION: Chest CT with CLINICAL HISTORY: Left breast cellulitis. Has been seen by STATION INSTALLATION SUPERVISOR. Patient reports has spread to left axilla. PRIORS: None TECHNIQUE: Contiguous axial images were obtained through the chest with the use of intravenous contrast. Sagittal and coronal reformations are supplied. FINDINGS: The patient is positioned to optimize visualization of the left breast. The right breast nipple areolar complex is not fully within the [id number]. Allowing for this, mild left periareolar skin thickening is noted. Dense retroareolar breast tissue is present versus a small fluid collection or abscess, image 113, image 4, measuring 15 mm. This is lower attenuation than the surrounding fibroglandular tissue. No subcutaneous gas or radiopaque foreign body. No axillary skin thickening. Infra mammary fold is unremarkable. Mildly prominent left axillary lymph node is present on image 11, series 2 measuring 9 mm in short axis. The chest is well-expanded. No pulmonary nodule or mass. No pleural or pericardial effusion. Heart size is normal. Trachea and mainstem bronchi patent. Limited visualization of the upper abdomen is unremarkable. Osseous structures unremarkable. IMPRESSION: Mild periareolar skin thickening, allowing for CT technique, with possible retroareolar fluid collection which could suggest an abscess. Mildly prominent left axillary lymph node likely reactive. Dedicated breast ultrasound is suggested. ACT 112: Positive. There are findings on this examination that require communication between the performing entity and the patient following Patient Test Result Information Act ([place] ACT 112) guidelines. Electronically signed by Prudence Nazario 04-30-2024 6:26 PM Medications Administered Oxycodone/Acetaminophen 1tab po Ketorolac 15mg IV Ceftriaxone 2g IV Code Status & VTE Plan Code Status Full Supervising Physician Co-Signing Physician Notes Patient seen and examined, chart reviewed, case discussed with JOSE LUIS Bean and Gvaiota agree with the assessment and plan as above Patient with left breast cellulitis, exquisite pain and tenderness. No trauma, is not nursing. On exam she is afebrile, HD stable, NAD SKin - warm, red and tender area on left breast - marked, tenderness in left axilla with palpable mobile LNs HEENT- MMM, Neck supple Heart - +S1/S2, regular, no m/r/g Lungs- CTA anteriorly Abd - Soft, NT/ND Ext- warm, well perfused Labs and images reviewed Assessment/Plan Breast cellulitis, possible developing abscess -Vancomycin -Pain control with toradol and oxycodone PRN -Remainder as above PG Care Time/CCT Total # of Minutes Spent Total Time Spent with Patient: Total time spent is greater than 50% in coordination of care (as documented) at patient's floor/unit and/or counseling patient: Coding Level of Care Code 33976 INT INP/OBS CARE 3/75MIN Diagnoses Left breast abscess N61.1 Cellulitis of left breast N61.0
[2024-04-30] MEDS ORDERED: VANCOMYCIN CONSULT ACTIVE PRN (20:06)
[2024-04-30] MEDS ORDERED: VANCOMYCIN HCL 1,500 MG in SODIUM CHLORIDE 0.9% 500 ML IV SCH (20:15)
[2024-04-30] MEDS: oxyCODONE/ACETAMINOPHEN 5mg/325mg TAB PO PRN (20:39)
--- NOTE | 2024-04-30 20:53 | Surgery Consultation ---
Date of Consultation April 30, 2024 Assessment & Plan (1) Left breast abscess: Patient is being admitted on the hospitalist service. From a surgery perspective we recommend the following: Patient has received a dose of Rocephin in the emergency department, but the admitting service is switching to vancomycin; antibiotic should continue Analgesics to be provided I discussed with the patient that will be preferable to obtain an ultrasound of her breast to better evaluate the potential for an abscess but she says that she cannot undergo this procedure due to the amount of pain she is experiencing. If we are able to get her pain under better control we will revisit this imaging modality Would recommend making the patient n.p.o. after midnight tonight The patient be reevaluated by Dr. Dennis the morning of 05/01/2024 and a determination be made if patient requires incision and drainage of her left breast. At the time of my interview the patient was nontoxic-appearing. She exhibited slight leukocytosis of 11.1, but she was normotensive without tachycardia or fever therefore I feel conservative treatment with antibiotics is warranted at this time Additional recommendations with forthcoming based on her clinical course as unfolds Addendum 12:00 am After my initial visit with the patient she did agree to undergoing breast ultrasound which was completed. This showed the patient had 3.9 cm complex fluid collection in the left retroareolar area suspicious for a phlegmon or developing abscess. Supervising Physician Co-Signing Physician Notes This case was discussed with the surgical PA and I agree with the plan History of Present Illness Reason for Consultation: Breast abscess History of Present Illness This is a 24-year-old female who presented to the emergency department secondary to breast pain. She notes that she noticed her left breast was painful upon awakening the morning of 04/27/2024. The patient described the pain as an ache in the area of her left areola on the medial side without radiation. She says she is not sure what precipitated this as she is not breast-feeding and she denies any injuries, cuts, or scratches to this area. She notes that she has never had this before. Because of the pain she saw her primary care physician next day who placed the patient on Bactrim however she presented to the emergency department today as the pain has not been getting any better and she feels as though the erythema on her breast is spreading. Since arrival to the hospital patient has had labs and imaging which I independently reviewed. A CT scan of the chest showed the patient had periareolar thickening of the left breast with concern for potential fluid collection behind the areola, representing a possible abscess. Labs include a CBC white blood cell count of slight elevation 11.1. Hemoglobin and hematocrit as well as the platelet count were normal. Coagulation studies were normal. Chemistry profile showed sodium and potassium were normal. The BUN and creatinine were not elevated. There is no elevation of LFTs. Procalcitonin level was normal. At the time my interview the patient was resting comfortably in bed and she was in no distress. Allergies Allergy/AdvReac Type Severity Reaction Status Date / Time No Known Allergies Allergy Verified 04/28/24 15:03 Home Medications Medication Instructions Recorded Confirmed Type venlafaxine 50 mg tablet 100 mg PO HS 07/19/22 04/30/24 History fluconazole 150 mg tablet 150 mg PO Q4D 2 doses #2 tabs 07/20/23 04/30/24 Rx celecoxib 200 mg capsule 200 mg PO HS 04/28/24 04/30/24 History gabapentin 300 mg capsule 300 mg PO HS 04/28/24 04/30/24 History oxycodone-acetaminophen 5 mg-325 1 tab PO Q4H PRN pain #10 tabs 04/28/24 04/30/24 Rx mg tablet (Percocet) sulfamethoxazole 800 1 tab PO Q12H 10 days #20 tabs 04/28/24 04/30/24 Rx mg-trimethoprim 160 mg tablet Patient History Medical History Encounter for supervision of normal in multigravida Missed PTSD (post-traumatic stress disorder) from first delivery complications Depression with anxiety Asthma Chorioamnionitis Varicella vaccination Partial tear of left Achilles tendon Surgically repaired Surgical History S/P dilatation and curettage x2 S/P Achilles tendon repair H/O uvulectomy Hx of tonsillectomy Hx of LASIK Both eyes, release muscles when younger. Family History Grandfather (Maternal) Breast cancer Aunt Colorectal cancer Maternal Denies family history of Ovarian cancer Prostate cancer Myocardial infarction Social History Smoking Status: Never smoker Second Hand Exposure: No; Do You Dip or Chew Tobacco: No; Hx Alcohol Use: Yes Hx Substance Use: No Preferred Language: Sami Communication Ability: Effective Visual Impairment: No Limitations Regional Safety Manager Required: No Beliefs That Will Affect Care: None marital status: Single marital status details: elisabet Singer (24) [phone] Current Living Situation: Significant Other Current Living Situation Comment: Markus current occupational status: 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 Safe at Home: Yes Assistive Devices: None Review of Systems Review of Systems: All systems reviewed & are unremarkable except as noted in HPI & below Physical Exam Constitutional: WD/WN, vitals as above Eyes: no conjunctival abnormality ENMT: Ears: no hearing impairment and no external ear abnormality Mouth: no oropharynx abnormality Neck: trachea midline Respiratory: normal respiratory effort; no respiratory distress and no labored breathing Cardiovascular: Rate/Rhythm: regular rate and regular rhythm Chest (Breasts): Additional Comments: With a female nuclear physician present (this was the female hospitalist physician speech pathology assistant) I examined the patient's breast. On the patient's left breast in the area of the areola the skin is noted to be erythematous. This area is tender to palpation. There are no open areas or areas of drainage. There is no crepitus in the soft tissue. The tissue in this area did appear somewhat indurated. It was also warm to touch. Gastrointestinal (Abdomen): Soft and nondistended. Musculoskeletal: No gross orthopedic abnormalities. On the patient's left upper extremity I do not appreciate any erythema or lymphatic streaking. Skin: See above under breast exam Neurologic: moves all extremities Psychiatric: A+Ox3, euthymic affect Results & Data Vital Signs (Past 12 Hours) Vital Signs Temp Pulse Pulse Resp BP BP Pulse Ox 04/30/24 19:00 78 18 133/83 97 04/30/24 15:49 36.6 C 96 H 19 125/86 97 O2 Del Method 04/30/24 19:00 Room Air 04/30/24 15:49 Room Air PG Care Time/CCT Total # of Minutes Spent Total Time Spent with Patient: Total time spent is greater than 50% in coordination of care (as documented) at patient's floor/unit and/or counseling patient: Coding Level of Care Code 83365 IN/OBS CONSULT LVL 5,80M Diagnoses Left breast abscess N61.1
[2024-04-30] MEDS: VANCOMYCIN HCL 2,250 MG in SODIUM CHLORIDE 0.9% 500 ML IV ONE (21:09)
[2024-04-30] MEDS: MoRPHine SULFATE 4 MG/ML 1 ML CARP\\VIAL IV ONE (21:26)
[2024-04-30] MEDS: CeleBREX 200 MG CAP PO ONE (21:45)
[2024-04-30] MEDS: GABAPENTIN 300 MG CAP PO ONE (21:45)
[2024-04-30] MEDS: VENLAFAXINE HCL 50 MG TAB PO ONE (21:45)
[2024-04-30] MEDS ORDERED: ONDANSETRON INJ 2 MG/ML 2 ML VIAL IV PRN (22:13)
[2024-04-30] MEDS ORDERED: MELATONIN 3 MG TAB PO PRN (22:13)
[2024-04-30] MEDS ORDERED: POLYETHYLENE (MIRALAX) 17 GM PACK PO PRN (22:13)
[2024-04-30] MEDS: KETOROLAC TROMETHAMINE 15 MG/ML VIAL IV PRN (22:23)
--- NOTE | 2024-04-30 23:05 | Ultrasound Report ---
Exam(s): US LEFT BREAST EXAM: US Left Breast, Limited CLINICAL HISTORY: Reason for exam: Breast abscess, cellulitis. TECHNIQUE: Limited real time ultrasound of the left breast with image documentation, including axilla when performed. COMPARISON: No relevant prior studies available. FINDINGS: Left breast: There is a 3.9 cm poorly defined area of complex fluid and edema in the retroareolar left breast suspicious for phlegmon and possible developing abscess. There is surrounding soft tissue edema. IMPRESSION: There is a 3.9 cm poorly defined area of complex fluid and edema in the retroareolar left breast suspicious for phlegmon and possible developing abscess. There is surrounding soft tissue edema. Surgical consultation and follow-up recommended. Electronically signed by: Nicolas Martinez MD 04/30/24 23:04 PM
[2024-05-01] MEDS: FLUCONAZOLE 50 MG TAB PO STA (00:19)
[2024-05-01] MEDS: oxyCODONE/ACETAMINOPHEN 5mg/325mg TAB PO PRN (01:00)
[2024-05-01] MEDS: VANCOMYCIN HCL 1,250 MG in SODIUM CHLORIDE 0.9% 250 ML IV SCH (05:02)
[2024-05-01 08:06] LABS: Creatinine Clr Calc Pharmacy 191.2 ml/min
--- NOTE | 2024-05-01 08:20 | Surgery Progress Note ---
Date of Service May 01, 2024 Assessment & Plan (1) Abscess of breast, left: Plan: pt with left breast abscess surrounding medial nipple , reports today is day 4 with redness/pain/swelling was started on oral Abx 04/28/24 has been getting IV abx since arrival yesterday, VSS this am afebrile , labs pending wbc yesterday 11 discussion with pt included possible surgical intervention vs IV antibiotics , pt requesting surgical intervention keep npo until seen by surgeon Dr Prieto continue iv abx Admission and Anticipated Discharge Date Admission Date: April 30, 2024 Supervising Physician Co-Signing Physician Notes The patient was seen and examined this am. There is erythema immediately medial to the medial areola that appears to be stable per previous skin markings but there is a very small area of expansion at the superior aspect of the prior skin markings at the 12:00 position. There is also a very mild and faint streak of erythema at the upper outer left breast extending from the lateral areola. There is mild contour abnormality noted at the medial aspect of the areola 9- 12:00 I have discussed this extensively with Gladys with her mother on the phone. We discussed recommended management approach to breast abscess and the initial indication to start with needle aspiration. We discussed the imaging findings that do make this more difficult as the abscess is not loculated and contained as of yet, there is some fluid between the tissues as well as complexity to the fluid with some mixed solid component which may inhibit the ability to aspirate to complete resolution. But if we are able to aspirate enough to 1 obtain a culture and 2 to give the abx a better chance of fighting the infection. We discussed the potential deformity to the breast if incision and drainage becomes required as well as the need to leave the incised wound open in that case. We also discussed the fact that we would prefer to do a limited surgical intervention of this now if possible and obtain dedicated breast imaging if we can get the acute infection to subside so that we can evaluate for the presence of any abnormality that would require a biopsy to identify the presence of something we would not want to perform surgery on without a proper surgical plan or if surgery would actually not be the best management in the case of granulomatous disease. She expressed understanding of my explanations and agrees with the current operative plan. Consent has been obtained. Subjective pt report left breast still painful , denies drainage , fever/chills Review of Systems Constitutional: no fever and no chills Respiratory: no dyspnea Cardiovascular: no chest pain Integumentary: + breast pain (left ) Physical Exam Constitutional: cooperative and comfortable; no acute distress Respiratory: normal respiratory effort and able to speak in complete sentences; no respiratory distress Chest (Breasts): Breast: + breast tenderness (left) Results & Data Vital Signs (Past 12 Hours) Vital Signs Temp Pulse Resp BP Pulse Ox O2 Del Method 05/01/24 07:33 97.9 F 84 18 112/76 96 Room Air 05/01/24 00:53 98.1 F 97 H 18 129/88 96 Room Air 04/30/24 23:00 111 H 17 135/87 97 Room Air 04/30/24 21:00 72 18 131/72 98 Room Air PG Care Time/CCT Total # of Minutes Spent Total Time Spent with Patient: Total time spent is greater than 50% in coordination of care (as documented) at patient's floor/unit and/or counseling patient: Coding Level of Care Code 44352 SUB INP/OBS CARE 04/05MIN Diagnoses Abscess of breast, left N61.1
[2024-05-01 08:59] LABS: Hematocrit (blood only) 32.9 % (37.0-47.0); Hemoglobin 11.2 g/dl (12.0-16.0); Mean Corpuscular Hemoglobin 27.1 pg (25.0-34.0); Mean Corpuscular Volume 79.5 fL (80.0-100.0); Mean Platelet Volume 12.1 fL (9.4-12.4); Platelet Count 142 K/uL (130-400); RDW Coefficient of Variation 13.9 % (11.5-14.5); RDW Standard Deviation 40.6 fL (36.4-46.3); Red Blood Count 4.14 M/uL (4.20-5.40); White Blood Count 8.05 K/ul (4.8-10.8)
--- NOTE | 2024-05-01 10:32 | Pharmacy Report ---
Pharmacy PK ABX Note - Date of Service May 01, 2024 - Assessment and Plan Assessment 24 year old F receiving vancomycin for treatment of left breast cellulitis with probable abscess as seen on CT. * Per patient, skin changes with redness, swelling, and draining began 2 days p rior to admit. She was prescribed Bactrim by PCP on 04/28. * Plan for left breast aspiration with possible I&D today. * No cultures obtained yet * Patient is afebrile and presented with mild leukocytosis Day # 2 of vancomycin therapy. Plan Vancomycin * Loading dose: 2250 mg IV x 1 * Maintenance dose: 1250 mg IV every 8 hours * Regimen is predicted to achieve target AUC/DREW of 400-600 mg/L.hr * Random level ordered for: 05/02/24 with AM labs. Pharmacy will continue to follow and will adjust dose/frequency as necessary. Thank you. Pharmacy has transitioned to AUC monitoring for vancomycin. AUC/DREW is the preferred PK/PD target and is associated with decreased risk of nephrotoxicity compared to traditional trough targets.
[2024-05-01] MEDS ORDERED: ONDANSETRON INJ 2 MG/ML 2 ML VIAL ONE (11:25)
[2024-05-01] MEDS ORDERED: LIDOCAINE 2% 2 ML VIAL/AMP(20MG/ML) INFIL ONE (11:25)
[2024-05-01] MEDS ORDERED: PROPOFOL IV EMULSION 10 MG/ML 20 ML VIAL IV ONE (11:25)
[2024-05-01] MEDS ORDERED: fentaNYL citrate PF 100 MCG/2 ML VIAL ONE (11:26)
[2024-05-01] MEDS ORDERED: MIDAZOLAM HCL 1 MG/ML 2ML VIAL ONE (11:26)
[2024-05-01] MEDS: LACTATED RINGER'S 1,000 ML IV SCH (11:29)
[2024-05-01] MEDS ORDERED: LACTATED RINGER'S 500 ML IV SCH (11:30)
[2024-05-01] MEDS ORDERED: ATROPINE SULFATE 0.1 MG/ML 10ML SYR IV PRN (12:04)
[2024-05-01] MEDS ORDERED: ONDANSETRON INJ 2 MG/ML 2 ML VIAL IV PRN (12:04)
[2024-05-01] MEDS ORDERED: ePHEDrine sulfate 50 MG/ML AMP IV PRN (12:04)
[2024-05-01] MEDS ORDERED: PROMETHAZINE HCL 6.25 MG in SODIUM CHLORIDE 0.9% 50 ML IV PRN (12:04)
--- NOTE | 2024-05-01 12:06 | Anesthesiology Consultation ---
Date of Service May 01, 2024 Assessment & Plan (1) Encounter for pre-operative examination: Chart Review Chart Review: Acceptable Risk for Surgery and Patient NOT seen in Pre Admission Testing Consults Requested none History Surgery Operation Date: 05/01/24 09:30 Proposed Procedures p Left Breast Aspiration Possible Incision and Drainage - Anthony Bean DO Height/Weight Height: 5 ft 7 in Weight: 110 kg Allergies Allergy/AdvReac Type Severity Reaction Status Date / Time No Known Allergies Allergy Verified 05/01/24 11:20 Medications Home Medications Medication Instructions Recorded Confirmed Last Taken venlafaxine 50 mg tablet 100 mg PO HS 07/19/22 04/30/24 04/29/24 22:00 fluconazole 150 mg tablet 150 mg PO Q4D 2 doses #2 tabs 07/20/23 04/30/24 Unknown celecoxib 200 mg capsule 200 mg PO HS 04/28/24 04/30/24 04/29/24 22:00 gabapentin 300 mg capsule 300 mg PO HS 04/28/24 04/30/24 04/29/24 22:00 oxycodone-acetaminophen 5 mg-325 1 tab PO Q4H PRN pain #10 tabs 04/28/24 04/30/24 04/29/24 22:00 mg tablet (Percocet) sulfamethoxazole 800 1 tab PO Q12H 10 days #20 tabs 04/28/24 04/30/24 04/30/24 09:00 mg-trimethoprim 160 mg tablet Active Medications Generic Name Dose Route Start Last Admin Trade Name Freq PRN Reason Stop Dose Admin Vancomycin HCl 1,250 mg/ 275 mls @ 200 mls/hr 05/01/24 06:00 05/01/24 06:26 Sodium Chloride IV 05/08/24 05:59 Infused Q8H IRMA Infusion Lactated Ringer's 1,000 mls @ 15 mls/hr 05/01/24 11:30 05/01/24 11:29 Lr IV 05/02/24 11:29 15 mls/hr .Q24H IRMA Administration Ketorolac Tromethamine 15 mg 04/30/24 20:07 05/01/24 07:38 Ketorolac Tromethamine 15 Mg/Ml Vial IV 05/05/24 20:06 15 mg Q6H PRN Administration Pain & Pre PT Oxycodone/Acetaminophen 1 tab 04/30/24 20:07 05/01/24 05:01 Oxycodone/Acetaminophen 5mg/325mg Tab PO 05/14/24 20:06 1 tab Q4H PRN Administration MODERATE Pain (4,5,6) & Pre PT Oxycodone/Acetaminophen 2 tab 04/30/24 20:07 05/01/24 09:03 Oxycodone/Acetaminophen 5mg/325mg Tab PO 05/14/24 20:06 2 tab Q4H PRN Administration SEVERE Pain (7,8,9,10) NPO Date Last Intake of Fluids: 04/30/24 Time Last Intake of Fluids: 22:30 Date Last Intake of Solids: 04/30/24 Time Last Intake of Solids: 22:30 Past Medical History Medical History (Updated 05/01/24 @ 12:06 by Jorge Briceno MD) Encounter for pre-operative examination Encounter for supervision of normal in multigravida Missed PTSD (post-traumatic stress disorder) from first delivery complications Depression with anxiety Asthma Chorioamnionitis Varicella vaccination Partial tear of left Achilles tendon Surgically repaired Past Family History Family History Grandfather (Maternal) Breast cancer Aunt Colorectal cancer Maternal Denies family history of Ovarian cancer Prostate cancer Myocardial infarction Past Surgical History Surgical History S/P dilatation and curettage x2 S/P Achilles tendon repair H/O uvulectomy Hx of tonsillectomy Hx of LASIK Both eyes, release muscles when younger. Social History Smoking Status: Never smoker Do You Dip or Chew Tobacco: No Hx Alcohol Use: Yes alcohol intake frequency: holidays/special occasions only Hx Substance Use: No substance use type: does not use Physical Exam Vital Signs Last Vital Signs Temp 36.6 C 05/01/24 11:21 Pulse 77 05/01/24 11:21 Resp 18 05/01/24 11:21 BP 116/80 05/01/24 11:21 Pulse Ox 96 05/01/24 11:21 O2 Del Method Room Air 05/01/24 11:21 Testing Laboratory Results 05/01/24 07:02 05/01/24 06:58 PT 10.5 Seconds (9.0-12.0) 04/30/24 16:28 INR 1.0 (0.9-1.1) 04/30/24 16:28 APTT 31 Seconds (21-31) 04/30/24 16:28 05/01/24 11:19 POC Ur Test NEG
[2024-05-01] MEDS ORDERED: DEXAMETHASONE SOD INJ 4 MG/ML VIAL ONE (13:58)
[2024-05-01] MEDS: BUPIVACAINE/EPINEPHRINE 0.5% MPF 1:200,000 30 ML VIAL ONE (14:29)
[2024-05-01] MEDS: fentaNYL citrate PF 100 MCG/2 ML VIAL IV PRN (14:40)
[2024-05-01] MEDS: HYDROmorphone INJ 1 MG/ML SYRINGE IV PRN (14:55)
--- NOTE | 2024-05-01 14:57 | Operative Report ---
PG Post Operative Report Pre & Post Diagnosis Operation Date: 05/01/24 09:30 Pre-Op Diagnosis: Left breast cellulitis Post-Op Diagnosis: Left breast cellulitis I identified the patient and participated in the time-out.: Yes Procedure Operation Date: 05/01/24 09:30 Actual Procedures p Left Breast Aspiration(Left) - Anthony Prieto DO Surgeon Anthony Prieto DO Building Services Engineer TIARA Cervantes Estimated Blood Loss 1 Findings See Below No drainable fluid collection. wound culture Specimens None Anesthesia Type General Complications None Indications Left breast pain imaging (suspicious for fluid collection in the face of cellulitis Description of Procedure The patient was brought back to the operating room and placed on the OR table in supine position. She was connected to cardiac and oxygen monitoring, SCDs were applied to b/l LE, supplemental O2 was provided. The patient was administered general anesthesia and a secure airway was established. Left breast was prepped and draped in typical sterile fashion and timeout was conducted. On inspection, a prominent area of bowl appeared irritated. This area was also mobilized used to express blood and minimal amount of purulent drainage was not able to be captured. An ultrasound was used intraoperatively to identify the plane and managed complex fluid pocket noted on the ultrasound. The skin was anesthetized just medial to the location and the needle was introduced to the apparent complex collection. There was no fluid that was aspirated through the needle. After several attempts, a very small periareolar incision was made on the medial aspect of the areola and the area was assessed with pockets. There seemed to be a pocket at the medial breast but no purulent fluid. The culture swab was used at this location although there was no fluid collection noted at this location. The area was copiously irrigated and 1/4 inch packing was used. This may be a very superficial to the skin and was in the nipple areola region, involving the nipple ducts and in an effort not to cause fistula formation, no further probing was performed around this area. The area was covered with dry gauze and secured in place with tape. I attest to the content of the Intraoperative Record and any orders documented therein. Any exceptions are noted below.
--- NOTE | 2024-05-01 15:38 | Anesthesiology Progress Note ---
Date of Service May 01, 2024 Anesthesia Post Procedure Vital Signs Vital Signs: Temp Pulse Pulse Pulse Resp BP BP 05/01/24 15:30 36.9 C 105 H 18 121/84 05/01/24 15:05 101 H 15 124/89 05/01/24 14:55 97 H 16 142/93 H 05/01/24 14:45 100 H 16 138/93 05/01/24 14:38 36.2 C L 111 H 20 90/65 L 05/01/24 11:21 36.6 C 77 18 116/80 05/01/24 07:33 36.6 C 84 18 112/76 05/01/24 00:53 36.7 C 97 H 18 129/88 04/30/24 23:00 111 H 17 135/87 04/30/24 21:00 72 18 131/72 04/30/24 19:00 78 18 133/83 04/30/24 15:49 36.6 C 96 H 19 125/86 Pulse Ox O2 Del Method O2 Flow Rate 05/01/24 15:30 93 Room Air 05/01/24 15:05 98 Nasal Cannula 3 05/01/24 14:55 92 Nasal Cannula 2 05/01/24 14:45 94 Oxymask 4 05/01/24 14:38 98 Oxymask 6 05/01/24 11:21 96 Room Air 05/01/24 07:33 96 Room Air 05/01/24 00:53 96 Room Air 04/30/24 23:00 97 Room Air 04/30/24 21:00 98 Room Air 04/30/24 19:00 97 Room Air 04/30/24 15:49 97 Room Air Pain Intensity Left Breast: Pain Intensity: 4 Transfer of Care Handoff Completed per policy Notes Mental Status: alert / awake / arousable Patient Amnestic to Procedure: Yes Nausea / Vomiting: adequately controlled Pain: adequately controlled Airway Patency, RR, SpO2: stable & adequate BP & HR: stable & adequate Hydration State: stable & adequate Anesthetic Complications: no major complications apparent and Pt Satisfied with anesthetic care
--- NOTE | 2024-05-01 16:39 | Hospitalist Progress Note ---
Date of Service May 01, 2024 Assessment & Plan (1) Left breast abscess: (2) Cellulitis of left breast: Plan 24-year-old F PMHx sickle cell trait, PTSD, depression with anxiety, and asthma who presents for L breast cellulitis. States that the skin change started 2 days SHAKER OUT with redness and swelling, with one spot that was draining. Was seen by PCP and was started on Bactrim. #L breast cellulitis/abscess Not currently breast-feeding, no known trauma to the area or breaks in the skin. Did have drainage for "1 drop", yellow in nature then discontinued. Prescribed Bactrim as outpatient. -CBC w/ normalization of WBC. BMP stable. -Chest CT: mild periareolar skin thickening. possible retroareolar fluid collection which could suggest abscess. Mildly prominent left axillary lymph node, likely reactive. -Breast US: 3.9cm poorly defined area of complex fluid & edema in retroareolar left breast suspicious for phelgmon & possible developing abscess. Surrounding soft tissue edema. -Surgery following, s/p left breast aspiration 05/01. Cultures from OR pending -Continue Vancomycin, covering for MRSA --> MRSA swab pending, could consider de-escalating abx if negative Chronic conditions: Mental Health: Venlafaxine Dispo: Admit, med/sx VTE prophylaxis: SCDs Updated significant other at bedside 05/01. Admission and Anticipated Discharge Date Admission Date: April 30, 2024 Subjective Patient seen and examined following her operation. She reports to have discomfort in her left breast. She is awaiting to hear from the surgeon about how her surgery went. She has not passed gas or urinated since surgery thus far. She denied any CP or SOB. Reports she is unsure how she developed abscess on left breast. Denies any previous wounds to the area. She has a 9 month old child but denies breast feeding. Physical Exam Constitutional: WD/WN, vitals as above Eyes: PERRL, conjunctivae normal, anicteric sclerae Respiratory: breathing unlabored Cardiovascular: well perfused Psychiatric: A+Ox3, euthymic affect Results & Data Results & Data Vital Signs (Past 12 Hours) Vital Signs Temp Pulse Pulse Pulse Resp BP Pulse Ox 05/01/24 16:30 36.6 C 81 18 101/66 90 05/01/24 16:00 36.8 C 83 16 106/73 90 05/01/24 15:30 36.9 C 105 H 18 121/84 93 05/01/24 15:05 101 H 15 124/89 98 05/01/24 14:55 97 H 16 142/93 H 92 05/01/24 14:45 100 H 16 138/93 94 05/01/24 14:38 36.2 C L 111 H 20 90/65 L 98 05/01/24 11:21 36.6 C 77 18 116/80 96 05/01/24 07:33 36.6 C 84 18 112/76 96 O2 Del Method O2 Flow Rate 05/01/24 16:30 Room Air 05/01/24 16:00 Room Air 05/01/24 15:30 Room Air 05/01/24 15:05 Nasal Cannula 3 05/01/24 14:55 Nasal Cannula 2 05/01/24 14:45 Oxymask 4 05/01/24 14:38 Oxymask 6 05/01/24 11:21 Room Air 05/01/24 07:33 Room Air PG Care Time/CCT Total # of Minutes Spent Total Time Spent with Patient: Total time spent is greater than 50% in coordination of care (as documented) at patient's floor/unit and/or counseling patient: Coding Level of Care Code 48651 SUB INP/OBS CARE 2/35MIN Diagnoses Left breast abscess N61.1 Cellulitis of left breast N61.0
[2024-05-01] MEDS: HYDROmorphone INJ 0.5 MG/0.5 ML SYR IV PRN (17:00)
[2024-05-01] MEDS ORDERED: FLUCONAZOLE 50 MG TAB PO PRN (19:30)
[2024-05-01] MEDS: CLOTRIMAZOLE VAGINAL CR 7 APPLN/45 GM TUBE PV SCH (20:20)
[2024-05-01] MEDS: VENLAFAXINE HCL 50 MG TAB PO SCH (21:42)
[2024-05-01] MEDS: CeleBREX 200 MG CAP PO SCH (21:43)
[2024-05-01] MEDS: GABAPENTIN 300 MG CAP PO SCH (21:43)
[2024-05-02] MEDS: VANCOMYCIN LEVEL ONE (06:23)
[2024-05-02 06:48] LABS: Basophils # (auto) 0.02 K/uL (0.00-0.20); Basophils % (auto) 0.2 %; Eosinophils # (auto) 0.06 K/uL (0.00-0.50); Eosinophils % (auto) 0.6 %; Hematocrit (blood only) 33.5 % (37.0-47.0); Hemoglobin 11.7 g/dl (12.0-16.0); Immature Granulocytes # (auto) 0.06 K/uL (0.01-0.20); Immature Granulocytes % (auto) 0.6 %; Lymphocytes # (auto) 1.45 K/uL (1.20-3.40); Lymphocytes % (auto) 13.5 %; Mean Corpuscular Hemoglobin 27.1 pg (25.0-34.0); Mean Corpuscular Hgb Conc 34.9 g/dL (32.0-36.0); Mean Corpuscular Volume 77.7 fL (80.0-100.0); Mean Platelet Volume 11.6 fL (9.4-12.4); Monocytes # (auto) 0.72 K/uL (0.11-0.59); Monocytes % (auto) 6.7 %; Neutrophils # (auto) 8.41 K/uL (1.40-6.50); Neutrophils % (auto) 78.4 %; Platelet Count 191 K/uL (130-400); RDW Coefficient of Variation 13.2 % (11.5-14.5); RDW Standard Deviation 37.9 fL (36.4-46.3); Red Blood Count 4.31 M/uL (4.20-5.40); White Blood Count 10.72 K/ul (4.8-10.8)
[2024-05-02 07:02] LABS: Calcium 8.7 mg/dl (8.6-10.3); Creatinine Clr Calc Pharmacy 221.7 ml/min; Potassium 4.3 mmol/L (3.5-5.1)
--- NOTE | 2024-05-02 10:37 | Pharmacy Report ---
Pharmacy PK ABX Note - Date of Service May 02, 2024 - Assessment and Plan Assessment 05/02: Based on the vanco level of 5.9mcg/mL obtained today the predicted AUC is subtherapeutic (<400), so the vancomycin has been increased to 1500mg iv q 8 hours. * Cultures from OR yesterday are pending, MRSA nasal swab is negative * Renal function remains stable, leukocytosis resolved, and afebrile. 05/01: 24 year old F receiving vancomycin for treatment of left breast cellulitis with probable abscess as seen on CT. * Per patient, skin changes with redness, swelling, and draining began 2 days prior to admit. She was prescribed Bactrim by PCP on 04/28. * Plan for left breast aspiration with possible I&D today. * No cultures obtained yet * Patient is afebrile and presented with mild leukocytosis Day # 2 of vancomycin therapy. Plan Vancomycin * Vanco level today 5.9mcg/mL, extrapolated AUC is subtherapeutic (< 400). * Maintenance dose increased to: 1500 mg IV every 8 hours * Regimen is predicted to achieve target AUC/DREW of 400-600 mg/L.hr * Random level will be ordered in the next 48 hours if the vancomycin is continued. Pharmacy will continue to follow and will adjust dose/frequency as necessary. Thank you. Pharmacy has transitioned to AUC monitoring for vancomycin. AUC/DREW is the preferred PK/PD target and is associated with decreased risk of nephrotoxicity compared to traditional trough targets.
--- NOTE | 2024-05-02 11:03 | Surgery Progress Note ---
<Statement entered by Anthony Prieto, DO - 05/02/24 11:49> I have seen and examined this patient this am and I agree with this plan Date of Service May 02, 2024 Assessment & Plan (1) Abscess of breast, left: Plan: pod 1 left breast aspiration/ incision and drainage with Dr Prieto wbc 10, vss afebrile reviewed with pt operative findings post surgical dressing changed at bedside pt may shower wear supportive bra continue warm compresses continue IV abx throughout today May d/c tomorrow with oral abx follow up in office next week with Dr Prieto General surgery will sign off at this time call with questions/concerns pt seen and examined with Dr Prieto Admission and Anticipated Discharge Date Admission Date: April 30, 2024 Subjective reports post surgical discomfort denies f/c Review of Systems Constitutional: no fever and no chills Respiratory: no dyspnea Cardiovascular: no chest pain Integumentary: + breast pain (left ) Physical Exam Constitutional: cooperative and comfortable; no acute distress Respiratory: normal respiratory effort and able to speak in complete sentences; no respiratory distress Chest (Breasts): Breast: + breast tenderness (left) Results & Data Vital Signs (Past 12 Hours) Vital Signs Temp Pulse Resp BP Pulse Ox O2 Del Method 05/02/24 07:56 98.2 F 83 16 120/85 93 Room Air 05/02/24 03:23 97.7 F 95 H 18 120/82 94 Room Air 05/02/24 00:25 98.1 F 107 H 20 138/87 93 Room Air PG Care Time/CCT Total # of Minutes Spent Total Time Spent with Patient: Total time spent is greater than 50% in coordination of care (as documented) at patient's floor/unit and/or counseling patient: Coding Level of Care Code 90495 Post Operative Follow-Up Diagnoses Abscess of breast, left N61.1
[2024-05-02] MEDS: ceFAZolin 1000MG 1,000 MG/7.5 ML SYR IV SCH (12:58)
[2024-05-02] MEDS: DOCUSATE SODIUM/SENNA 50/8.6MG TAB PO SCH (12:59)
[2024-05-02] MEDS ORDERED: VANCOMYCIN HCL 1,500 MG in SODIUM CHLORIDE 0.9% 500 ML IV SCH (14:00)
--- NOTE | 2024-05-02 16:44 | Hospitalist Progress Note ---
Date of Service May 02, 2024 Assessment & Plan (1) Left breast abscess: (2) Cellulitis of left breast: Plan 24-year-old F PMHx sickle cell trait, PTSD, depression with anxiety, and asthma who presents for L breast cellulitis. States that the skin change started 2 days [employer] with redness and swelling, with one spot that was draining. Was seen by PCP and was started on Bactrim. #L breast cellulitis/abscess Not currently breast-feeding, no known trauma to the area or breaks in the skin. Did have drainage for "1 drop", yellow in nature then discontinued. Prescribed Bactrim as outpatient. -CBC/BMP stable. -Chest CT: mild periareolar skin thickening. possible retroareolar fluid collection which could suggest abscess. Mildly prominent left axillary lymph node, likely reactive. -Breast US: 3.9cm poorly defined area of complex fluid & edema in retroareolar left breast suspicious for phelgmon & possible developing abscess. Surrounding soft tissue edema. -Surgery following, s/p left breast aspiration 05/01. Cultures from OR negative thus far. Patient can be discharged 05/03. Will require follow up w/ general surgery outpatient. -MRSA screen negative. Switched from Vancomycin to Cefazolin. Consider PO Cephalexin on discharge. -Continue Warm compress, wear supportive bra, okay to shower. Chronic conditions: Mental Health: Venlafaxine Dispo: Admit, med/sx VTE prophylaxis: SCDs Updated family other at bedside 05/02. Admission and Anticipated Discharge Date Admission Date: April 30, 2024 Subjective Patient seen and examined this morning. Patient reports left breast pain/tenderness. She also reports constipation w/ the pain medication she has been getting. States she does not like to take Miralax as she does not like the consistency of it. Reports no BM since prior to admission. Physical Exam Constitutional: WD/WN, vitals as above Eyes: PERRL, conjunctivae normal, anicteric sclerae Respiratory: breathing unlabored Cardiovascular: well perfused Psychiatric: A+Ox3, euthymic affect Results & Data Results & Data Vital Signs (Past 12 Hours) Vital Signs Temp Pulse Resp BP Pulse Ox O2 Del Method 05/02/24 15:25 36.9 C 87 18 130/82 96 Room Air 05/02/24 07:56 36.8 C 83 16 120/85 93 Room Air PG Care Time/CCT Total # of Minutes Spent Total Time Spent with Patient: Total time spent is greater than 50% in coordination of care (as documented) at patient's floor/unit and/or counseling patient: Coding Level of Care Code 84595 SUB INP/OBS CARE 2/35MIN Diagnoses Left breast abscess N61.1 Cellulitis of left breast N61.0
[2024-05-02] MEDS: LORazepam 0.5 MG TAB PO PRN (18:46)
[2024-05-02 21:07] VITALS: RESP 16
[2024-05-03 07:41] LABS: Hematocrit (blood only) 33.5 % (37.0-47.0); Hemoglobin 11.4 g/dl (12.0-16.0); Mean Corpuscular Hemoglobin 26.5 pg (25.0-34.0); Mean Corpuscular Volume 77.7 fL (80.0-100.0); Mean Platelet Volume 11.1 fL (9.4-12.4); Platelet Count 168 K/uL (130-400); RDW Coefficient of Variation 13.4 % (11.5-14.5); RDW Standard Deviation 38.3 fL (36.4-46.3); Red Blood Count 4.31 M/uL (4.20-5.40); White Blood Count 8.78 K/ul (4.8-10.8)
[2024-05-03 07:53] VITALS: BP 119/84; PULSE 81; TEMP 97.7; O2SAT 95
[2024-05-03 07:53] LABS: Creatinine Clr Calc Pharmacy 191.2 ml/min
--- NOTE | 2024-05-03 11:21 | Discharge Summary ---
Discharge Summary Date of Service May 03, 2024 Principal Dx & Hospital Course #1 = Principal Diagnosis (1) Left breast abscess: (2) Cellulitis of left breast: Plan 24-year-old F PMHx sickle cell trait, PTSD, depression with anxiety, and asthma who presents for L breast cellulitis. States that the skin change started 2 days MIG TIG WELDER with redness and swelling, with one spot that was draining. Was seen by SECURITY MANAGEMENT SPECIALIST and was started on Bactrim. #L breast cellulitis/abscess Not currently breast-feeding, no known trauma to the area or breaks in the skin. Did have drainage for "1 drop", yellow in nature then discontinued. Prescribed Bactrim as outpatient. Has not noticed much improvement since aspiration/I&D w/ Dr. Gabby Bean. -CBC/BMP stable. - VSS. Afebrile. No fevers/chills -Chest CT: mild periareolar skin thickening. possible retroareolar fluid collection which could suggest abscess. Mildly prominent left axillary lymph node, likely reactive. -Breast US: 3.9cm poorly defined area of complex fluid & edema in retroareolar left breast suspicious for phelgmon & possible developing abscess. Surrounding soft tissue edema. -Surgery following, s/p left breast aspiration 05/01. Cultures from OR negative thus far. Patient can be discharged 05/03. Will require follow up w/ general surgery outpatient. -MRSA screen negative. Switched from Vancomycin to Cefazolin. Will provide MRSA coverage despite negative nasal swab. Continue Bactrim BID. She was given a 10 day course prior to admission, she should have enough for another 8 days. Follow up with Dr. Gabby Bean in the office for continued management. - Continue with pain - Oxy/APAP PRN as needed on discharge. She did have some anxiety with her pain, I was agreeable to 0.5mg Ativan 1 tab twice daily PRN (6 tabs total). -Continue Warm compress, wear supportive bra, okay to shower. Chronic conditions: Mental Health: Venlafaxine Dispo: Admit, med/sx VTE prophylaxis: SCDs Updated family other at bedside 05/02. Admission HPI Per Admitting Provider 24-year-old F PMHx sickle cell trait, PTSD, depression with anxiety, and asthma who presents for L breast cellulitis. States that the skin change started 2 days MIG TIG WELDER with redness and swelling, with one spot that was draining. Was seen by PCP and was started on Bactrim. Reports that on the day of arrival, the redness and edema was spreading outside of the previously marked area and was causing her more significant pain. Spreading upward, into armpit. Describes pain as sharp and stabbing in nature, most severe at nipple with radiating pain up to armpit and the surrounding rib area. Most recent temperature was 99.0 Fahrenheit. Not currently . States that she has never had this happen before. Does feel as though she is having some tingling in her left armpit and arm. Denies chest pain, shortness of breath, palpitations, abdominal pain, N/V/D/C, or LUTS. Has been taking Percocet for pain as prescribed by outpatient provider. ED evaluation reveals CBC with WBC 11.17, CMP grossly WNL with exception Cr 0.58, AST 12. Pt refused US of breast given significant pain with any touch, so CT of chest was completed revealing large area with skin thickening with retroareolar fluid collection suggestive of abscess, mildly prominent L axillary lymph node likely reactive. Provided with oxycodone/acetaminophen, ketorolac, and Rocephin 2 g in ED. Please see Dr. Elmore's attestation for adjustments/additions to treatment plan. Discharge Exam Constitutional WD/WN, vitals as above Eyes PERRL, conjunctivae normal, anicteric sclerae Respiratory normal respiratory effort, lungs clear to auscultation Cardiovascular RRR, no murmur, no edema Gastrointestinal (Abdomen) normal bowel sounds, soft, nontender, no hepatosplenomegaly Skin L breast dressing intact with scant amount of yellow drainage on dressing. + tenderness to palpation and mild erythema noted under dressing. Psychiatric A+Ox3, euthymic affect Discharge Plan Discharge Items Patient Disposition: Home - Self-Care Reason For Visit: BREAST ABSCESS + CELLULITIS Discharge Diagnosis: incision and drainage of breast abscess Condition on Discharge: Good Activity: Per Instructions section Lifting: Gradually increase as tolerated Bathing Comment: may shower; no soaking in tubs/pools x 2 weeks Driving/Machine Use: no driving if taking any medications for pain Non-emergency contact: Primary Care Provider and Surgeon Call non-emergency contact if: you have any medication questions, your pain is not controlled, your pain is worsening, you have a fever, your temperature is above 101.5, your wound has increased redness, your wound has increased drainage and your wound pain has increased Follow-up/Referrals: Anthony Prieto DO [Physician] - (please call the office to schedule follow up in clinic within 1-2 weeks .) Simin Jose PA-C [Primary Care Provider] - Diet: Regular Addtl Attending Provider Instructions: Keep a small wick of nu-gauze (1/4"plain packing) in your breast incision, cut to size. If a wick does not fit you may simply cover the area with dry 4x4 gauze and medipore tape. Change daily and as needed. The wound dose not need to be packed tightly. may use warm compresses as you tolerate to the area continue to wear a supportive bra Take pain medication as prescribed Finish the Bactrim prescription from Dr. Morrow until fully completed. Follow up with Dr. Gabby Bean this week Return to ER with any worsening symptoms including increased pain, swelling, redness and fever/chills While taking opioids, monitor bowels and take Miralax PRN over the counter for constipation. Pending Studies at Discharge: Yes Studies:: microbiology Stand-Alone Forms: [facility], Smoking Cessation Medications and DC Order Prescriptions: New oxycodone-acetaminophen [Endocet] 5-325 mg tablet 1 tab PO Q6H PRN (Reason: pain) Qty: 20 0RF lorazepam 0.5 mg tablet 0.5 mg PO BID PRN (Reason: anxiety) Qty: 6 0RF Continued celecoxib 200 mg capsule 200 mg PO HS gabapentin 300 mg capsule 300 mg PO HS sulfamethoxazole-trimethoprim 800-160 mg tablet 1 tab PO Q12H 10 Days Qty: 20 0RF venlafaxine 50 mg tablet 100 mg PO HS Discontinued fluconazole 150 mg tablet 150 mg PO Q4D 0 Days Qty: 2 0RF Rx Instructions: Take one now, repeat in 4 days if symptoms persist. oxycodone-acetaminophen [Percocet] 5-325 mg tablet 1 tab PO Q4H PRN (Reason: pain) Qty: 10 0RF Discharge Orders: Discharge Order (Routine); Ordered 05/03/24 Ordered By: Nisa Phillips/Other Patient Handouts: Taking Opioid Medicine Admission Data Admit Date/Time: 04/30/24 19:52 Attending Provider: Jigna June Admit Provider: Patsy Elmore Primary Care Provider: Simin Jose Other Providers: Anthony Prieto Hospital Stay Data Consultations 05/01/24 05:17 Consult General Surgery Routine Procedures Performed Operation Date: 05/01/24 09:30 Actual Procedures p Left Breast Aspiration(Left) - Anthony Prieto DO Diagnostic Imagining Performed 04/30/24 17:24 CT chest diagnostic w con Stat 04/30/24 21:00 US breast LT limited Stat 05/01/24 12:49 US point of care ultrasound Urgent Pending Results Patient Have Any Pending Studies at Discharge: Yes Discharge Instructions Given to Patient (Per Discharging Provider) Keep a small wick of nu-gauze (1/4"plain packing) in your breast incision, cut to size. If a wick does not fit you may simply cover the area with dry 4x4 gauze and medipore tape. Change daily and as needed. The wound dose not need to be packed tightly. may use warm compresses as you tolerate to the area continue to wear a supportive bra Take pain medication as prescribed Finish the Bactrim prescription from Dr. Morrow until fully completed. Follow up with Dr. Gabby Bean this week Return to ER with any worsening symptoms including increased pain, swelling, redness and fever/chills While taking opioids, monitor bowels and take Miralax PRN over the counter for constipation. Total Time Total Time Spent Total Time Spent (In Minutes): 35 Coding [place] [address] INP/OBS DISCH >30 MIN Patient Type Established Medical Decision Making Moderate Complexity Diagnoses Left breast abscess N61.1 Cellulitis of left breast N61.0
[2024-05-04] MEDS ORDERED: FLUCONAZOLE 50 MG TAB PO PRN
== END 2024-05-03 12:14 | disposition home or self-care (01) | DRG 585 ==
LOC: ED 15:31 → EDINP 19:52 → SUATTDRO 19:52 → INTOOBSV 19:52 → 3W 22:13